=== PATIENT | male | born 1955 | race Caucasian/White ===

== ENCOUNTER → 2017-07-30 | Outpatient (CLI) | payer OTHER ==
[~2017-07-30] MED LIST: ALL300 PO; ASC500 PO; ASPI-715 PO; FAM20 PO; FAMO20TA28 PO; FAMO20TA9 PO; HYDR-6016 PO; IBU600 PO; IBU800 PO; IBUP800T37 PO; LEV500 PO; LEVO-85 PO; LOR5 PO; NAPR220T86 PO; OMEG-84 PO; PAN20 PO; PANT40TA65 PO; PHEN200T32 PO; PHENA200 PO; TAM4 PO; VITE400 PO
== END ==
LOC: LAB 10:06
DX: R97.20 Elevated prostate specific antigen [PSA] (principal)
CPT/HCPCS: 36415; 84154

== ENCOUNTER → 2017-10-23 | Outpatient (CLI) | payer OTHER | LOC: LAB 11:47 | DX: R97.20 Elevated prostate specific antigen [PSA] (principal) | CPT/HCPCS: 36415; 84154 ==

== ENCOUNTER → 2018-01-15 | Outpatient (CLI) | payer OTHER | LOC: LAB 10:59 | DX: R97.20 Elevated prostate specific antigen [PSA] (principal) | CPT/HCPCS: 36415; 84154 ==

== ENCOUNTER 2018-03-04 16:55 | Inpatient (IN) | payer OTHER ==
[~2018-03-04] VITALS: Ht 177.8 cm; Wt 95.3 kg
--- NOTE | 2018-03-04 18:02 | ER Report ---
History and Physical Time Seen By MD: 18:02 Hx. of Stated Complaint: pain in low abdo, nausea, pain with urination HPI/ROS CHIEF COMPLAINT: abdominal pain, acute renal failure HISTORY OF PRESENT ILLNESS: Shahla is a 62 year old male. He was sent to the hospital this afternoon by his primary care provider, Dr. Swartz. The patient had seen Dr. Swartz for a 2-3 week history of abdominal pain. Consistent pain, vague, marlon-umbilical and to the lower abdomen bilaterally. No vomiting, but does have nausea. Poor appetite and not eating much, but eating dairy (yogurt, cheese, milk) seems to help a little. No diarrhea, blood in stool or melena. Last BM today and normal. Urinating a little more frequently, but no pain with urination. Has history of prostate problems and has seen Dr. Hanley in the past, and takes Tamsulosin. Last week did have some right sided flank pain, and took some Naproxen, but then stopped after reading the bottle which said not to take for stomach pain. No chest pain or shortness of breath. No fevers or chills. REVIEW OF SYSTEMS: As above. Allergies: Uncoded Allergies: sulfa drugs (Allergy, Unknown, 03/04/18) Home Meds Reported Medications [tumeric curcumin] No Conflict Check, 500 MG 03/04/18 Krill/[place]-3/Dha/Epa/Lipids (Krill Oil 350 mg Softgel) 350 Mg-90 Mg-24 Mg-50 Mg-130 Mg Capsule 03/04/18 Ibuprofen (IBUPROFEN) 800 Mg Tablet, 1 TAB PO TID PRN for PAIN, #50 TAB 06/07/15 Aspirin (Aspirin) 81 Mg Tablet.dr, 81 MG PO DAILY 07/15/12 Tamsulosin Hcl (Flomax) 0.4 Mg Cap, 0.4 MG PO BID, 0 Refills 09/21/09 Allopurinol (Zyloprim) 300 Mg Tab, 300 MG PO DAILY, 0 Refills 09/21/09 Discontinued Reported Medications Pantoprazole Sodium (PANTOPRAZOLE SODIUM) 40 Mg Tablet.dr, 40 MG PO QDAY, TAB.SR 03/04/18 Levofloxacin 500 Mg Tab (LEVAQUIN 500 MG TAB) 500 Mg Tablet, 500 MG PO QDAY 06/07/15 Famotidine (PEPCID) 20 Mg Tablet, 20 MG PO BID, #20 TAB 06/07/15 Phenazopyridine Hcl (PHENAZOPYRIDINE HCL) 200 Mg Tablet, 200 MG PO TID PRN for PAIN, #20 TAB 06/07/15 Hydrocodone Bit/Acetaminophen 7.5/300 (HYDROCODON-ACETAMINOPH 7.5-300) 1 Each Tablet, 1 EACH PO Q4-6H PRN for PAIN, #30 TAB 06/07/15 Docosahexanoic Acid/Epa (Fish Oil 1,000 Mg Softgel) 1 Cap Capsule, 1 CAP PO DAILY 07/15/12 Vitamin E (Vitamin E) 400 Intlu Cap, 400 INTLU PO QDAY 07/15/12 Ascorbic Acid (Vitamin C) 500 Mg Tab, 500 MG PO DAILY 07/15/12 Past Medical/Surgical History GERD, BPH, gout, surgeries include a mastectomy, hernia repair, tonsils and adenoids, colonoscopy which was normal, prostate biopsy which was normal Reviewed Nurses Notes: Yes Old Medical Records Reviewed: Yes (reviewed labs and notes from Dr. Swartz's office) Hx Smoking: No Smoking Status: Never Smoker Hx Alcohol Use: Yes Constitutional Vital Sign - Last 24 Hours 03/04/18 03/04/18 03/04/18 03/04/18 17:17 17:25 17:30 17:57 Temp 98.0 Pulse 65 67 Resp 14 B/P (MAP) 175/102 (126) 165/101 (122) 165/101 Pulse Ox 93 91 O2 Delivery Room Air 03/04/18 03/04/18 03/04/18 03/04/18 18:00 18:25 18:30 19:00 Pulse 69 75 61 B/P (MAP) 159/97 (117) 158/85 (109) 168/95 (119) Pulse Ox 91 91 96 03/04/18 03/04/18 03/04/18 19:05 19:30 19:35 Pulse 61 73 B/P (MAP) 147/75 (99) Pulse Ox 88 92 Physical Exam General Appearance: The patient is alert. No acute distress. Non-toxic in ap pearance. Eyes: Pupils are equal, round. No pallor, injection or icterus. ENT: Mucous membranes are moist. Neck: Supple, no lymphadenopathy Respiratory: Lungs are clear to auscultation. Cardiovascular: Regular rate and rhythm. No murmurs, gallops or rubs. Normal capillary refill. Gastrointestinal: Abdomen is soft, discomfort with palpation, seems a little worse with percussion. Nondistended. No rebound or guarding. No masses or organomegaly. Normal active bowel sounds. No costovertebral angle tenderness with percussion. Neurological: Alert and oriented x3. No focal neurologic deficits Skin: Warm and dry. No rashes. Musculoskeletal: Extremities are nontender. No tenderness in palpation of the cervical, thoracic and lumbar spine. DIFFERENTIAL DIAGNOSIS: After history and physical exam, differential diagnosis was considered for diffuse nonspecific abdominal discomfort, with recent labs showing new acute renal failure, unknown cause. Medical Decision Making Data Points Result Diagram: 03/05/18 0026 Laboratory Hematology Test 03/04/18 17:15 Urine Color Yellow Urine Clarity Slightly-cloudy Urine pH 5.0 pH (4.8-9.5) Urine Specific [place] 1.008 Urine Protein Negative mg/dL (NEGATIVE) Urine Glucose (UA) Negative mg/dL (NEGATIVE) Urine Ketones Negative mg/dL (NEGATIVE) Urine Blood Negative (NEGATIVE) Urine Nitrite Negative (NEGATIVE) Urine Bilirubin Negative (NEGATIVE) Urine Urobilinogen Negative mg/dL (0.2-1.9) Urine Leukocyte Esterase Negative (NEGATIVE) Urine RBC <1 /HPF (0-2/HPF) Urine WBC 2 /HPF (0-5/HPF) Urine Squamous Epithelial Cells Few /LPF (</=FEW) Urine Bacteria Negative /HPF (NONE-FEW) Urine Mucus None /HPF (NONE-FEW) Urine Random Creatinine 63.7 mg/dl Urine Random Sodium 34 MEQ/L Chemistry Test 03/04/18 17:15 Urine Color Yellow Urine Clarity Slightly-cloudy Urine pH 5.0 pH (4.8-9.5) Urine Specific [place] 1.008 Urine Protein Negative mg/dL (NEGATIVE) Urine Glucose (UA) Negative mg/dL (NEGATIVE) Urine Ketones Negative mg/dL (NEGATIVE) Urine Blood Negative (NEGATIVE) Urine Nitrite Negative (NEGATIVE) Urine Bilirubin Negative (NEGATIVE) Urine Urobilinogen Negative mg/dL (0.2-1.9) Urine Leukocyte Esterase Negative (NEGATIVE) Urine RBC <1 /HPF (0-2/HPF) Urine WBC 2 /HPF (0-5/HPF) Urine Squamous Epithelial Cells Few /LPF (</=FEW) Urine Bacteria Negative /HPF (NONE-FEW) Urine Mucus None /HPF (NONE-FEW) Urine Random Creatinine 63.7 mg/dl Urine Random Sodium 34 MEQ/L Urinalysis Test 03/04/18 17:15 Urine Color Yellow Urine Clarity Slightly-cloudy Urine pH 5.0 pH (4.8-9.5) Urine Specific [place] 1.008 Urine Protein Negative mg/dL (NEGATIVE) Urine Glucose (UA) Negative mg/dL (NEGATIVE) Urine Ketones Negative mg/dL (NEGATIVE) Urine Blood Negative (NEGATIVE) Urine Nitrite Negative (NEGATIVE) Urine Bilirubin Negative (NEGATIVE) Urine Urobilinogen Negative mg/dL (0.2-1.9) Urine Leukocyte Esterase Negative (NEGATIVE) Urine RBC <1 /HPF (0-2/HPF) Urine WBC 2 /HPF (0-5/HPF) Urine Squamous Epithelial Cells Few /LPF (</=FEW) Urine Bacteria Negative /HPF (NONE-FEW) Urine Mucus None /HPF (NONE-FEW) Urine Random Creatinine 63.7 mg/dl Urine Random Sodium 34 MEQ/L EKG/Imaging Imaging EXAMINATION: Complete Abdominal Ultrasound Bladder ultrasound HISTORY: Abdominal pain. Acute renal failure. Post void bladder. COMPARISON: None. FINDINGS: Liver: Normal hepatic echotexture. There are several small cysts present in both lobes of the liver. The largest cyst measures 1.6 cm in the right hepatic lobe. No ultrasound evidence of any solid liver mass. Antegrade flow is visualized in the main portal vein. Gallbladder: The gallbladder is contracted and otherwise unremarkable by ultrasound. No visualized gallstones. No gallbladder wall thickening or pericholecystic fluid. Bile Ducts: No biliary ductal dilatation. The common duct measures 4 mm. Pancreas: The head and body of the pancreas are moderately well visualized and unremarkable where seen. Spleen: Normal; length 11 cm. Kidneys: There is moderate symmetric hydronephrosis of both kidneys. Normal renal echogenicity. No parenchymal atrophy. The right kidney measures 12.5 cm in length; the left kidney 12.1 cm. Aorta: Segmentally visualized proximally. Patent and normal in caliber where seen. IVC: Patent. Ascites: None. Other: Post void ultrasound imaging of the bladder was performed. The bladder is markedly distended, measuring 18 x 11 x 14 cm, with a calculated bladder volume of 1379 mL. Left ureteral jets are visualized. Right ureteral jet was not visualized. There is moderate prostatic enlargement. IMPRESSION: 1. Marked distention of the urinary bladder with poor bladder emptying. Calculated volume of 1379 mL on post void imaging. 2. There is moderate symmetric hydronephrosis of both kidneys, likely secondary to the markedly distended urinary bladder. 3. No other acute intra-abdominal findings by ultrasound. Report Dictated By: Doroteo Kwon MD at 03/04/2018 8:22 PM ED Course/Re-evaluation Clinical Indication for ER IV: Hydration, IV Access ED Course Labs at Dr. Swartz's office: Sodium 138, Potassium 4.4, Bicarb 10, Chloride 107, BUN 74, Cr 5.2, Glucose 97, Calcium 10.7. Normal LFTs. Normal CBC. Ultrasound and labs show an obstructive uropathy picture. Discussed with Dr. Hanley. Plan to insert turner catheter and drain the bladder. Will infuse IV LR, plan for 1/2 of the volume of the urine drained as IV LR. Will consult Dr. Gomez for assistance with management. Further evaluation of electrolytes and fluid as needed. Will provide D5LR at 125cc/hr tonight. Dr. Hanley will see him in the morning. Decision to Disposition Date: Mar 04, 2018 Decision to Disposition Time: 20:36 Depart Departure Latest Vital Signs Vital Signs Date Time Temp Pulse Resp B/P (MAP) Pulse Ox O2 Delivery O2 Flow Rate FiO2 03/04/18 19:35 73 92 03/04/18 19:30 147/75 (99) 03/04/18 17:57 98.0 14 Room Air Impression: Primary Impression: Urinary outflow obstruction Additional Impressions: Acute renal failure Obstructive uropathy Condition: Condition Unchanged Disposition: Admitted from ER Referrals: BROOKLYN SWARTZ MD (PCP) Problem Qualifiers Additional Impressions: Acute renal failure Acute renal failure type: unspecified Qualified Codes: N17.9 - Acute kidney failure, unspecified FIDELINA THOMAS MD Mar 04, 2018 18:02
[2018-03-04] MEDS ORDERED: PANT40TA65 PO (18:48)
[2018-03-04] MEDS ORDERED: tumeric curcumin (18:48)
[2018-03-04] MEDS ORDERED: KRIL1CAP29 (18:48)
[2018-03-04] MEDS ORDERED: LIDOCAINE 2% 200MG/10ML UROJET TP ONE (20:25)
[2018-03-04] MEDS ORDERED: LR(*) 1000 ML BAG 1,000 ML VA ONE (20:25)
--- NOTE | 2018-03-04 20:34 | RADIOLOGY IMAGING REPORT ---
FAC[place] [facility] [place] NAME: Ronaldo Moss : 1955 MR: [id number] V: [id number] EXAM DATE: ORDERING PHYSICIAN: FIDELINA THOMAS TECHNOLOGIST: Location: [facility] Patient: Ronaldo Moss : 1955 Visit/Account:[id number] Date of Sevice: 03/04/2018 EXAMINATION: Complete Abdominal Ultrasound Bladder ultrasound HISTORY: Abdominal pain. Acute renal failure. Post void bladder. COMPARISON: None. FINDINGS: Liver: Normal hepatic echotexture. There are several small cysts present in both lobes of the liver. The largest cyst measures 1.6 cm in the right hepatic lobe. No ultrasound evidence of any solid live r mass. Antegrade flow is visualized in the main portal vein. Gallbladder: The gallbladder is contracted and otherwise unremarkable by ultrasound. No visualized g allstones. No gallbladder wall thickening or pericholecystic fluid. Bile Ducts: No biliary ductal dilatation. The common duct measures 4 mm. Pancreas: The head and body of the pancreas are moderately well visualized and unremarkable where se en. Spleen: Normal; length 11 cm. Kidneys: There is moderate symmetric hydronephrosis of both kidneys. Normal renal echogenicity. No pa renchymal atrophy. The right kidney measures 12.5 cm in length; the left kidney 12.1 cm. Aorta: Segmentally visualized proximally. Patent and normal in caliber where seen. IVC: Patent. Ascites: None. Other: Post void ultrasound imaging of the bladder was performed. The bladder is markedly distended, measuring 18 x 11 x 14 cm, with a calculated bladder volume of 1379 mL. Left ureteral jets are visual ized. Right ureteral jet was not visualized. There is moderate prostatic enlargement. IMPRESSION: 1. Marked distention of the urinary bladder with poor bladder emptying. Calculated volume of 1379 mL on post void imaging. 2. There is moderate symmetric hydronephrosis of both kidneys, likely secondary to the markedly diste nded urinary bladder. 3. No other acute intra-abdominal findings by ultrasound. Report Dictated By: Doroteo Kwon MD at 03/04/2018 8:22 PM Report E-Signed By: Doroteo Kwon MD at 03/04/2018 8:31 PM WSN:[id number]
--- NOTE | 2018-03-04 20:35 | RADIOLOGY IMAGING REPORT ---
FACILITY: [facility] PATIENT NAME: Ronaldo Moss : 1955 MR: [id number] V: [id number] EXAM DATE: ORDERING PHYSICIAN: FIDELINA THOMAS TECHNOLOGIST: Location: [facility] [place] Patient: Ronaldo Moss : 1955 Visit/Account:[id number] Date of Sevice: 03/04/2018 EXAMINATION: Complete Abdominal Ultrasound Bladder ultrasound HISTORY: Abdominal pain. Acute renal failure. Post void bladder. COMPARISON: None. FINDINGS: Liver: Normal hepatic echotexture. There are several small cysts present in both lobes of the liver. The largest cyst measures 1.6 cm in the right hepatic lobe. No ultrasound evidence of any solid live r mass. Antegrade flow is visualized in the main portal vein. Gallbladder: The gallbladder is contracted and otherwise unremarkable by ultrasound. No visualized g allstones. No gallbladder wall thickening or pericholecystic fluid. Bile Ducts: No biliary ductal dilatation. The common duct measures 4 mm. Pancreas: The head and body of the pancreas are moderately well visualized and unremarkable where se en. Spleen: Normal; length 11 cm. Kidneys: There is moderate symmetric hydronephrosis of both kidneys. Normal renal echogenicity. No pa renchymal atrophy. The right kidney measures 12.5 cm in length; the left kidney 12.1 cm. Aorta: Segmentally visualized proximally. Patent and normal in caliber where seen. IVC: Patent. Ascites: None. Other: Post void ultrasound imaging of the bladder was performed. The bladder is markedly distended, measuring 18 x 11 x 14 cm, with a calculated bladder volume of 1379 mL. Left ureteral jets are visual ized. Right ureteral jet was not visualized. There is moderate prostatic enlargement. IMPRESSION: 1. Marked distention of the urinary bladder with poor bladder emptying. Calculated volume of 1379 mL on post void imaging. 2. There is moderate symmetric hydronephrosis of both kidneys, likely secondary to the markedly diste nded urinary bladder. 3. No other acute intra-abdominal findings by ultrasound. Report Dictated By: Doroteo Kwon MD at 03/04/2018 8:22 PM Report E-Signed By: Doroteo Kwon MD at 03/04/2018 8:31 PM WSN:[id number]
[2018-03-04] MEDS ORDERED: MORPHINE 4 MG/ML SDV IVP ONE (21:55)
[2018-03-04 22:09] VITALS: BP 172/102
[2018-03-04] MEDS ORDERED: LR(*) 1000 ML BAG 1,000 ML IV PRN (22:10)
[2018-03-04] MEDS ORDERED: ONDANSETRON 4 MG ODT TABDP SL PRN (22:20)
[2018-03-04] MEDS ORDERED: ONDANSETRON 4 MG/2 ML VIAL IVP PRN (22:20)
[2018-03-04] MEDS ORDERED: ACETAMINOPHEN 500 MG TAB PO PRN (22:20)
[2018-03-04 22:49] VITALS: BP 177/99
[2018-03-04] MEDS: DLR(*) 1000 ML BAG 1,000 ML IV PRN (22:52)
[2018-03-04 23:00] VITALS: BP 173/94
[2018-03-04] MEDS ORDERED: BELLADONNA ALKALOIDS/OPIUM 30 MG SUPP PR PRN (23:00)
[2018-03-04] MEDS ORDERED: hydrALAZINE HCL 20 MG/ML VIAL IVP PRN ×2 (23:00→23:45)
[2018-03-04 23:30] VITALS: BP 158/92
--- NOTE | 2018-03-04 23:52 | Hospitalist Consultation ---
History of Present Illness Requesting Physician Dr Hanley Reason for Consult ROGERIO 2/2 obstruction, HTN Chief Complaint Urinary Retention History of Present Illness Thank you for the consultation. 62M presented from PCP office with ROGERIO, PMHx significant for BPH. Found to have significant urinary retention (1800cc) on passing Cuevas. Cr was 5.5 in PCP office confirmed in [facility], US showed retention with bilateral hydronephrosis. UA no evidence of infection. Dr Hanley ordered decompression with strict I/O, IV D5LR @ 125cc/hr + 0.5x hourly output for rate. Patient is hypertensive on floor. ER report Dr Hanley ordered 125cc/hr + 0.5x hourly output with D5LR, nursing report orders for 150cc/hr +0.5x hourly output with LR. Asked for clarification after unable to reach Dr Hanley, recommend using 125cc/hr D5LR + 0.5x hourly output as fluid replacement. This should optimize retention of fluid in vascula ture and provide sufficient volume replacement based on output. History Problems: (1) BPH (benign prostatic hyperplasia) (2) Gout Status: Chronic Home Meds Reported Medications [tumeric curcumin] No Conflict Check, 500 MG 03/04/18 Krill/[place]-3/Dha/Epa/Lipids (Krill Oil 350 mg Softgel) 350 Mg-90 Mg-24 Mg-50 Mg-130 Mg Capsule 03/04/18 Ibuprofen (IBUPROFEN) 800 Mg Tablet, 1 TAB PO TID PRN for PAIN, #50 TAB 06/07/15 Aspirin (Aspirin) 81 Mg Tablet.dr, 81 MG PO DAILY 07/15/12 Tamsulosin Hcl (Flomax) 0.4 Mg Cap, 0.4 MG PO BID, 0 Refills 09/21/09 Allopurinol (Zyloprim) 300 Mg Tab, 300 MG PO DAILY, 0 Refills 09/21/09 Discontinued Reported Medications Pantoprazole Sodium (PANTOPRAZOLE SODIUM) 40 Mg Tablet.dr, 40 MG PO QDAY, TAB.SR 03/04/18 Levofloxacin 500 Mg Tab (LEVAQUIN 500 MG TAB) 500 Mg Tablet, 500 MG PO QDAY 06/07/15 Famotidine (PEPCID) 20 Mg Tablet, 20 MG PO BID, #20 TAB 06/07/15 Phenazopyridine Hcl (PHENAZOPYRIDINE HCL) 200 Mg Tablet, 200 MG PO TID PRN for PAIN, #20 TAB 06/07/15 Hydrocodone Bit/Acetaminophen 7.5/300 (HYDROCODON-ACETAMINOPH 7.5-300) 1 Each Tablet, 1 EACH PO Q4-6H PRN for PAIN, #30 TAB 06/07/15 Docosahexanoic Acid/Epa (Fish Oil 1,000 Mg Softgel) 1 Cap Capsule, 1 CAP PO DAILY 07/15/12 Vitamin E (Vitamin E) 400 Intlu Cap, 400 INTLU PO QDAY 07/15/12 Ascorbic Acid (Vitamin C) 500 Mg Tab, 500 MG PO DAILY 07/15/12 Allergies: Uncoded Allergies: sulfa drugs (Allergy, Unknown, 03/04/18) Patient History: FH: Alzheimers disease FATHER FH: melanoma BROTHER OR SISTER FH: myocardial infarction FATHER FHx: benign prostatic hypertrophy FATHER FHx: hypertension MOTHER FHx: prostate cancer Uncle Stent FATHER Hx Smoking: No Smoking Status: Never Smoker Caffeine Intake: Soda Caffeine/Cups Per Day: 1-2 Hx Alcohol Use: Yes Alcohol Used: Beer, Wine, Liquor Hx Substance Use Disorder: No Social Drug Use: Never Review of Systems All Systems Reviewed/Normal: Yes, Except as Noted Genitourinary: Other (Urinary retention) Exam Vital Signs Vital Signs Date Time Temp Pulse Resp B/P (MAP) Pulse Ox O2 Delivery O2 Flow Rate FiO2 03/04/18 23:00 59 173/94 (120) 03/04/18 22:49 91 Room Air 03/04/18 22:09 99.2 16 General Appearance: Alert, Awake, No Acute Distress, Afebrile Neuro: No Gross deficits Eyes: PERRLA ENT: Normal Neck: No Masses Cardiovascular: Normal Rhythm & Peripheral Pulses Respiratory: No Respiratory Distress Chest: No Tenderness GI: Abd Soft and Non-Tender : Normal (+ Cuevas with bloody urine) Lymph: Cervical Nodes Benign Musculoskeletal: No Weakness/Pain Extremities: Soft and Non Tender, Warm, Pulses, Perfused, Edema (mild to knee b/l) Integumentary: Skin Intact without Lesion / Mass Psych: Alert & Oriented X3, Appropriate Mood & Affect Medical Decision Making Data Points Result Diagram: 03/04/18 2130 Assessment and Plan Problems: (1) Acute renal failure Status: Acute Assessment & Plan: Likely 2/2 obstruction, 1800cc retained, Cr elevated at 5.5 on admission. US showed bilateral hydronephrosis, no evidence medical renal disease. Strict I/O, Cuevas, monitor Cr, IV fluid hydration per primary. Should rapidly improve with decompression, monitor for complications. Ur Cr and Na pen ding for completeness, will check phosphorus. Avoid contrast, gadolinium, MOE/ARB, NSAID, nephrotoxic Rx as able. K normal, monitor closely but no need for renal diet at this time. Bicarb decreased at 18mEq/L but anion gap normal at 14mEq/L. (2) HTN (hypertension) Assessment & Plan: No previous Hx, likely response to decreased filtration through glomeruli. Do not want to decrease renal perfusion to rapidly. Should improve as pressure reduced through collecting system. PRN hydralazine for BP control but will allow body to self regulate for now up to BP 180 systolic. Asymptomatic. (3) Obstructive uropathy Status: Acute Assessment & Plan: Per primary, Hx of BPH. Cuevas in place, draining well. Bloody Urine in Cuevas, will use SCD only for now no chemical anticoagulation. (4) BPH (benign prostatic hyperplasia) Assessment & Plan: On tamsulosin, follows with Dr Hanley. (5) Gout Status: Chronic Assessment & Plan: Will hold allopurinol at this time 2/2 renal injury. Restart with renal dosing as appropriate. Venous Thromboembolism Antithrombotics Is Pt On Any Antithrombotics?: No (SCD only) Prophylaxis Tx Contraindicated Pharmacological Contraindicati: Active Bleeding Exam Sepsis Risk: No Definite Risk Problem Qualifiers (1) Acute renal failure: Acute renal failure type: unspecified Qualified Codes: N17.9 - Acute kidney failure, unspecified HARDIK RESTREPO DO Mar 04, 2018 23:52
[2018-03-05] VITALS: BP 165/98
[2018-03-05] MEDS: DLR(*) 1000 ML BAG 1,000 ML IV PRN ×4 (00:33→09:10)
[2018-03-05 02:53] VITALS: BP 153/92
[2018-03-05] MEDS ORDERED: PANTOPRAZOLE SOD 40 MG TABEC PO SCH (06:00)
[2018-03-05 07:36] VITALS: BP 159/88
[2018-03-05] MEDS ORDERED: GLYCOPYRROLATE 0.2MG/ML 1 ML INJ IVP PRN (08:45)
[2018-03-05] MEDS ORDERED: GLYCOPYRROLATE 0.2MG/ML 1 ML INJ IVP ONE (09:00)
[2018-03-05] MEDS ORDERED: ASPIRIN 81 MG CHEW PO SCH (09:00)
[2018-03-05] MEDS ORDERED: TAMSULOSIN HCL 0.4 MG CAP PO SCH (09:00)
[2018-03-05] MEDS ORDERED: ALLOPURINOL 300 MG TAB PO SCH (09:00)
[2018-03-05 09:31] VITALS: Ht 177.8 cm; Wt 95.3 kg
[2018-03-05 10:40] VITALS: BP 129/75
--- NOTE | 2018-03-05 11:09 | Hospitalist Progress Note ---
Subjective Progress Notes Subjective This patient was admitted with obstructive uropathy. He had no acute issues overnight. Patient Complains of: Cardiovascular: No: Chest Pain Respiratory: No: Shortness of Breath Physical Exam Vital Signs Date Time Temp Pulse Resp B/P (MAP) Pulse Ox O2 Delivery O2 Flow Rate FiO2 03/05/18 10:40 98.3 49 12 129/75 (93) 94 Room Air 03/05/18 02:53 0.5 Intake and Output 03/05/18 06:59 Intake Total 4500 ml Output Total 9050 ml Balance -4550 ml Intake Oral 500 ml IV Total 4000 ml Output Urine Total 9050 ml Cardiovascular: Regular Rate and Rhythm Respiratory: Clear to Auscultation Result Diagram: 03/05/18 1001 Assessment and Plan Problems: (1) Acute renal failure Status: Acute Assessment & Plan: His renal function has been improving now that the obstruction is bypassed. He remains on IV fluids. (2) Obstructive uropathy Status: Acute Assessment & Plan: A Cuevas catheter remains in place. He is scheduled for a TURP procedure later this week. (3) HTN (hypertension) Assessment & Plan: He has no prior history of hypertension. Hydralazine is ordered as needed, but he has not required treatment. (4) BPH (benign prostatic hyperplasia) Assessment & Plan: He is on chronic treatment with tamsulosin. Further management per Dr. Hanley. (5) Gout Status: Chronic Assessment & Plan: He is on chronic treatment with allopurinol. Exam Sepsis Risk: No Definite Risk Problem Qualifiers (1) Acute renal failure: Acute renal failure type: unspecified Qualified Codes: N17.9 - Acute kidney failure, unspecified BROOKLYN WETZEL DO Mar 05, 2018 11:09
[2018-03-05] MEDS ORDERED: LR(*) 1000 ML BAG 1,000 ML IV PRN (12:40)
[2018-03-05 15:29] VITALS: BP 125/86
[2018-03-05] MEDS ORDERED: OXYB10TA21 PO (16:55)
[2018-03-05] MEDS ORDERED: PANT40SU3 PO (16:55)
[2018-03-05] MEDS ORDERED: HYDR-420 PO (16:56)
== END 2018-03-05 17:45 | disposition home or self-care (01) | DRG 694 ==
LOC: ER 17:26 → MED 21:01
DX: N13.8 Other obstructive and reflux uropathy (principal); N13.30 Unspecified hydronephrosis; N17.9 Acute kidney failure, unspecified; I10 Essential (primary) hypertension; N40.1 Benign prostatic hyperplasia with lower urinary tract symptoms; K21.9 Gastro-esophageal reflux disease without esophagitis; R33.8 Other retention of urine; M1A.9XX0 Chronic gout, unspecified, without tophus (tophi); Z88.2 Allergy status to sulfonamides
CPT/HCPCS: 36415; 76700; 76705; 81001; 82040; 82247; 82310; 82374; 82435; 82565; 82570; 82947; 84075; 84100; 84132; 84155; 84295; 84300; 84450; 84460; 84520; 87088; 99284; J2270; J7120

== ENCOUNTER → 2018-03-06 | Outpatient (CLI) | payer OTHER ==
[2018-03-05 09:31] VITALS: BMI 30.1
[~2018-03-06] MED LIST changes: +HYDR-420 PO; +KRIL1CAP29; +OXYB10TA21 PO; +PANT40SU3 PO; +tumeric curcumin
[2018-03-06 17:21] LABS: INR 1.02
== END ==
LOC: LAB 15:47
DX: N17.9 Acute kidney failure, unspecified (principal); R94.5 Abnormal results of liver function studies
CPT/HCPCS: 36415; 82310; 82374; 82435; 82565; 82947; 84132; 84295; 84520; 85027; 85049; 85379; 85384; 85610; 85730

== ENCOUNTER 2018-03-12 00:35 | Observation (INO) | payer OTHER ==
[~2018-03-12] VITALS: Ht 175.3 cm; Wt 88.9 kg
[2018-03-12] VITALS (10 sets, daily range): BP systolic 117–155; BP diastolic 77–117
[~2018-03-12 00:35] MED LIST changes: +LIDOCAINE/SOD BICARB 8.4% SYR ID ONE; +MIDAZOLAM 2 MG/2 ML VIAL IVP PRN; +NORMOSOL R SOLN(*) 1000 ML BAG 1,000 ML IV PRN; +cefTRIAXone(*) 2 GM VIAL 2 GM in NS(*) 0.9% 100 ML ADDVANT BAG 100 ML IVPB ONE
[2018-03-12 10:23] LABS: PLATELET COUNT, AUTOMATED 240 K/uL (150-450)
[2018-03-12] MEDS ORDERED: PROPOFOL EMUL(*) 10MG/ML 20 ML 20 ML ONE (11:20)
[2018-03-12] MEDS ORDERED: DEXAMETHASONE SOD 4 MG/ML VIAL ONE (11:20)
[2018-03-12] MEDS ORDERED: LIDOCAINE MPF 1% 5 ML VIAL ONE (11:20)
[2018-03-12] MEDS ORDERED: ONDANSETRON 4 MG/2 ML VIAL ONE (11:20)
[2018-03-12] MEDS ORDERED: METOCLOPRAMIDE 10 MG/2 ML SDV ONE (11:21)
[2018-03-12] MEDS ORDERED: NS 0.9% IVPB ONE (11:35)
[2018-03-12] MEDS ORDERED: NORMOSOL R SOLN(*) 1000 ML BAG 1,000 ML IV PRN (11:35)
[2018-03-12] MEDS ORDERED: FAMOTIDINE 20 MG TAB PO ONE (11:35)
[2018-03-12] MEDS ORDERED: LIDOCAINE/SOD BICARB 8.4% SYR ID ONE (11:35)
[2018-03-12] MEDS ORDERED: CEFTRIAXONE IVPB ONE (11:35)
[2018-03-12] MEDS ORDERED: MIDAZOLAM 2 MG/2 ML VIAL IVP PRN (11:35)
[2018-03-12] MEDS ORDERED: fentaNYL CITR 100 MCG/2 ML AMP ONE ×4 (14:11→19:06)
[2018-03-12] MEDS ORDERED: GENTAMICIN 80 MG/2 ML VIAL ONE (14:44)
[2018-03-12] MEDS ORDERED: MINERAL OIL LIGHT 10 ML VIAL ONE (15:09)
[2018-03-12] MEDS ORDERED: BELLADONNA ALKALOIDS/OPIUM 30 MG SUPP PR ONE (16:20)
--- NOTE | 2018-03-12 16:25 | RADIOLOGY IMAGING REPORT ---
FACILITY: [facility] - [place] PATIENT NAME: Ronaldo Moss : 1955 MR: [id number] V: [id number] EXAM DATE: ORDERING PHYSICIAN: CHRISTIANO LEE TECHNOLOGIST: Location: [facility] Patient: Ronaldo Moss : 1955 Visit/Account:[id number] Date of Sevice: 03/12/2018 Exam type: PROSTATE ultrasound for biopsy History: SURGERY Comparison: June 07, 2015. Findings: Prostate biopsy was performed by Dr. Lee. Sonographic assistance was provided. Please see Dr. Felix chávez's report for complete details IMPRESSION: 1. As above Report Dictated By: Suzy Lorenzo MD at 03/12/2018 4:20 PM Report E-Signed By: Suzy Lorenzo MD at 03/12/2018 4:22 PM [email or web address]
[2018-03-12] MEDS ORDERED: HYDROCORTISONE 1% CR 28.35 GM TP ONE (16:52)
[2018-03-12] MEDS ORDERED: GLYCOPYRROLATE 0.2MG/ML 1 ML INJ ONE (16:55)
[2018-03-12 18:00] LABS: PLATELET COUNT, AUTOMATED 205 K/uL (150-450)
[2018-03-12] MEDS ORDERED: ACETAMIN/CODEINE #3 300-30 MG PO PRN (18:10)
[2018-03-12] MEDS ORDERED: LR(*) 1000 ML BAG 1,000 ML IV PRN (18:10)
[2018-03-12] MEDS ORDERED: ONDANSETRON 4 MG/2 ML VIAL IVP PRN (18:10)
[2018-03-12] MEDS ORDERED: HYDROmorphone PCA 6 MG/30 ML IV PRN (18:10)
[2018-03-12] MEDS ORDERED: FLUSH 10 ML SYR IVP PRN (18:10)
[2018-03-12] MEDS ORDERED: ZOLPIDEM TARTRATE 5 MG TAB PO PRN (18:10)
[2018-03-12] MEDS ORDERED: NALOXONE HCL 0.4 MG/ML VIAL IVP PRN (18:10)
[2018-03-12] MEDS ORDERED: BELLADONNA ALKALOIDS/OPIUM 30 MG SUPP PR PRN (18:10)
[2018-03-12] MEDS ORDERED: GLYCOPYRROLATE 0.2MG/ML 1 ML INJ IVP PRN (18:10)
[2018-03-12] MEDS ORDERED: FUROSEMIDE 20 MG/2 ML VIAL IVP ONE (18:15)
[2018-03-12] MEDS ORDERED: NORMOSOL R SOLN(*) 1000 ML BAG 1,000 ML IV ONE (18:27)
[2018-03-12] MEDS ORDERED: LABETALOL HCL 100 MG/20ML VIAL ONE (18:42)
--- NOTE | 2018-03-12 18:53 | OPERATIVE REPORT 1 ---
EVENT DATE: March 12, 2018 SURGEON: Octavio Hanley MD ANESTHESIOLOGIST: Kemal Lion MD ANESTHESIA: General. PREOPERATIVE DIAGNOSES 1. Urinary retention secondary to outlet obstruction from the prostate gland. 2. Renal insufficiency secondary to #1. 3. 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 POSTOPERATIVE DIAGNOSES 1. Urinary retention secondary to outlet obstruction from the prostate gland. 2. Renal insufficiency secondary to #1. 3. 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 PROCEDURES PERFORMED 1. Cystourethroscopy. 2. Transurethral resection of the prostate. 3. Vaporization of the prostate. DESCRIPTION OF PROCEDURE Under general anesthetic, the patient was prepped and draped in the extended lithotomy position. The prostate ultrasound was performed. There were diffuse calculi throughout the prostate. The prostate measured approximately 112 g. It was deep in its AP diameter as well as its transverse diameter and longitudinal diameter. The 21 panendoscope was admitted through the urethra to the bladder. The urethra was normal. The prostate showed trilobar hyperplasia with a large obstruction prostate with the vesicle extension of the median lobe. It was almost ball valving in and out of the bladder neck area in all probability. Bladder showed a 4+ trabeculation. The bladder showed evidence of decompression cystitis from the 1800 mL he had in the bladder a little over a week ago. No other demonstrable lesions. The intravesical extension of the median lobe was resected back to the verumontanum. The tissue was resected down to the circular fibers at the bladder neck circumferentially. Bleeding was controlled with spot coagulation. Right and left lateral lobe tissues were removed. Apical tissue was resected at the conclusion of the procedure. The posterior tissue was resected with a finger in the rectum. The verumontanum was visualized and present throughout the procedure and at the conclusion of the procedure. The entire prostatic capsule was vaporized several times throughout the procedure manage the bleeding. The chips were evacuated from the bladder. The chips were so long that I had to use a grasper to remove several chips. Bladder was filled with irrigation fluid, and the scope was withdrawn. There was good efflux of irrigation fluid that cut off almost immediately upon withdrawal of the scope. There was a good, solid stream. The 22 three-way Cuevas was then placed through the urethra to the bladder. Hydrocortisone cream was placed per urethra prior to placement of the Cuevas. The bladder was drained. The irrigation was intermittently clear and then blood tinged. I elected to hold transrectal pressure for more than 10 minutes. That was accomplished. At conclusion of the procedure, there still were times of clear irrigation fluid, and then there was a show of blood, but it appeared to be less. Estimated blood loss less than 500 cc. Replacement none. Patient was stable throughout the procedure. Patient returned to recovery room in satisfactory condition. This is a 62-year-old white male complaining of urinary retention. He had a residual volume of approximately 1800 mL. He also had renal insufficiency with a creatinine of 5.3, a BUN in the 70 range, and a GFR, I believe, of 19. Patient has had an indwelling Cuevas since drainage of his bladder, and his renal function tests have improved significantly with a GFR greater than 40 at this time, and creatinine, I believe, is 1.7, upper limits of normal being 1.5. Options were discussed with the patient pretreatment. He was agreeable to evaluation and therapy. That has been accomplished. See operative note for details. Patient will hopefully be ready for discharge home in the a.m. if all is going well. Force fluids, 2 L per day. Activities are restricted to careful ambulation. He is to continue his usual medications. Patient will be discharged home on Levaquin, Pepcid, Pyridium, Colace, and [place] therapy in addition to his usual medications. MTDD
[2018-03-12] MEDS: WATER FOR IRRIG,STERILE 3000ML 3,000 ML IR PRN (20:27)
[2018-03-12] MEDS: BENZALKONIUM CL 1:750 TOP SOLN TP SCH (21:00)
[2018-03-12] MEDS: DOCUSATE SODIUM 100 MG CAP PO SCH (21:10)
[2018-03-12] MEDS: FAMOTIDINE 20 MG TAB PO SCH (21:10)
[2018-03-12] MEDS: PROPANTHELINE BROMIDE 15MG TAB PO PRN (21:10)
[2018-03-12] MEDS: NEOMYCIN/POLYMYX/BACITR OINT 1 PACKET TP SCH (21:10)
[2018-03-13] VITALS (9 sets, daily range): BP systolic 113–132; BP diastolic 66–79; Ht 175.3 cm; Wt 88.9 kg
[2018-03-13] MEDS: WATER FOR IRRIG,STERILE 3000ML 3,000 ML IR PRN ×2 (02:25→06:49)
[2018-03-13] MEDS: GENTAMICIN/NS 80 MG/100 ML PB 100 ML IVPB SCH ×2 (02:46→14:09)
[2018-03-13] MEDS: PROPANTHELINE BROMIDE 15MG TAB PO PRN ×3 (02:47→15:24)
[2018-03-13] MEDS: BENZALKONIUM CL 1:750 TOP SOLN TP SCH (09:00)
[2018-03-13] MEDS: FAMOTIDINE 20 MG TAB PO SCH (09:38)
[2018-03-13] MEDS: NEOMYCIN/POLYMYX/BACITR OINT 1 PACKET TP SCH (09:38)
[2018-03-13] MEDS: DOCUSATE SODIUM 100 MG CAP PO SCH (09:38)
[2018-03-13] MEDS ORDERED: TAMSULOSIN HCL 0.4 MG CAP PO ONE (13:45)
[2018-03-13] MEDS ORDERED: PHEN200T32 PO (13:53)
[2018-03-13] MEDS ORDERED: CIPR-214 PO (13:54)
[2018-03-13] MEDS ORDERED: cefTRIAXone(*) 1 GM VIAL 1 GM in NS(*) 0.9% 100 ML ADDVANT BAG 100 ML IVPB SCH (14:00)
[2018-03-13] MEDS ORDERED: BETH25TA43 PO (14:02)
== END 2018-03-13 13:44 | disposition home or self-care (01) ==
LOC: OR 00:35 → MED 19:30 → INTOOBSV 19:30
DX: N40.1 Benign prostatic hyperplasia with lower urinary tract symptoms (principal); N28.9 Disorder of kidney and ureter, unspecified; N20.1 Calculus of ureter
CPT/HCPCS: 36415; 52648; 76872; 85025; 88305; A4346; G0378; J0696; J1100; J1580; J1940; J2001; J2405; J2704; J2765; J3010; J3490; J7050; J7120; 82040; 82247; 82310; 82374; 82435; 82565; 82947; 84075; 84132; 84155; 84295; 84450; 84460; 84520

== ENCOUNTER → 2018-05-06 | Outpatient (CLI) | payer OTHER ==
[2018-03-13 12:02] VITALS: BMI 28.9
[~2018-05-06] MED LIST changes: +BETH25TA43 PO; +CIPR-214 PO; -LIDOCAINE/SOD BICARB 8.4% SYR ID ONE; -MIDAZOLAM 2 MG/2 ML VIAL IVP PRN; -NORMOSOL R SOLN(*) 1000 ML BAG 1,000 ML IV PRN; -cefTRIAXone(*) 2 GM VIAL 2 GM in NS(*) 0.9% 100 ML ADDVANT BAG 100 ML IVPB ONE
== END ==
LOC: LAB 10:48
DX: R97.20 Elevated prostate specific antigen [PSA] (principal)
CPT/HCPCS: 36415; 84154

== ENCOUNTER → 2018-07-22 | Outpatient (CLI) | payer OTHER ==
[2018-03-13 12:02] VITALS: BMI 28.9
== END ==
LOC: LAB 10:16
DX: R97.20 Elevated prostate specific antigen [PSA] (principal)
CPT/HCPCS: 36415; 84154

== ENCOUNTER → 2018-09-30 | Outpatient (CLI) | payer OTHER ==
[2018-03-13 12:02] VITALS: BMI 28.9
== END ==
LOC: LAB 07:44
DX: R97.20 Elevated prostate specific antigen [PSA] (principal)
CPT/HCPCS: 36415; 84154

== ENCOUNTER → 2018-10-01 | Outpatient (CLI) | payer OTHER ==
[2018-03-13 12:02] VITALS: BMI 28.9
[2018-10-01 08:11] LABS: PLATELET COUNT, AUTOMATED 188 K/uL (150-450)
== END ==
LOC: LAB 07:22
DX: R97.20 Elevated prostate specific antigen [PSA] (principal)
CPT/HCPCS: 36415; 82040; 82247; 82310; 82374; 82435; 82565; 82947; 84075; 84132; 84155; 84295; 84450; 84460; 84520; 85025

== ENCOUNTER 2018-10-14 02:29 | Day surgery (SDC) | payer OTHER ==
[2018-03-13 12:02] VITALS: Ht 177.8 cm; Wt 88.5 kg
[~2018-10-14] VITALS: Ht 177.8 cm; Wt 88.5 kg
[~2018-10-14 02:29] MED LIST changes: +CALC200T27 PO; +MULT1CAP59 PO
[2018-10-14] MEDS ORDERED: fentaNYL CITR 100 MCG/2 ML AMP ONE (10:14)
[2018-10-14] MEDS ORDERED: ONDANSETRON 4 MG/2 ML VIAL ONE (10:15)
[2018-10-14] MEDS ORDERED: PROPOFOL EMUL(*) 10MG/ML 20 ML 20 ML ONE (10:15)
[2018-10-14] MEDS ORDERED: LIDOCAINE MPF 1% 5 ML VIAL ONE (10:15)
[2018-10-14] MEDS ORDERED: DEXAMETHASONE SOD PHOS 10MG/ML ONE (10:15)
[2018-10-14 10:32] VITALS: BP 140/84
[2018-10-14] MEDS ORDERED: cefTRIAXone(*) 2 GM VIAL 2 GM in NS(*) 0.9% 100 ML MINI-BAG 100 ML IVPB ONE (11:10)
[2018-10-14] MEDS ORDERED: MIDAZOLAM 2 MG/2 ML VIAL IVP PRN (11:10)
[2018-10-14] MEDS ORDERED: NORMOSOL R SOLN(*) 1000 ML BAG 1,000 ML IV PRN (11:10)
[2018-10-14] MEDS ORDERED: GENTAMICIN(*) 80 MG/2 ML VIAL 160 MG in NS(*) 0.9% 100 ML BAG 100 ML IVPB ONE (11:10)
[2018-10-14] MEDS ORDERED: FAMOTIDINE 20 MG TAB PO ONE (11:10)
[2018-10-14] MEDS ORDERED: LIDOCAINE/SOD BICARB 8.4% SYR ID ONE (11:10)
[2018-10-14] MEDS ORDERED: HYDROCORTISONE 1% CR 28.35 GM TP ONE (12:37)
[2018-10-14] MEDS ORDERED: WATER FOR IRRIG,STERILE 3000ML IR ONE (12:45)
[2018-10-14] MEDS ORDERED: ACET-3017 PO (13:18)
[2018-10-14] MEDS ORDERED: FAMO20TA28 PO (13:18)
[2018-10-14] MEDS ORDERED: IBUP-1671 PO (13:19)
[2018-10-14] MEDS ORDERED: LEVO-85 PO (13:20)
[2018-10-14] MEDS ORDERED: ACETAMIN/CODEINE #3 300-30 MG PO ONE (13:42)
[2018-10-14 14:00] VITALS: BP 127/85
--- NOTE | 2018-10-14 14:08 | RADIOLOGY IMAGING REPORT ---
FACILITY: [facility] [place] PATIENT NAME: Ronaldo Moss : 1955 MR: [id number] V: [id number] EXAM DATE: ORDERING PHYSICIAN: CHRISTIANO LEE TECHNOLOGIST: [place] [facility] [place] Ronaldo [place] : 1955 Visit/Account:[id number] Date of Sevice: 10/14/2018 Exam type: PROSTATE BIOPSY History: Elevated PSA Comparison: March 12, 2018. Findings: The prostate biopsy was performed by Dr. Lee. Sonographic assistance was provided. Please see Dr. Lee's report for complete details IMPRESSION: 1. As above Report Dictated By: Suzy Lorenzo MD at 10/14/2018 2:03 PM Report E-Signed By: Suzy Lorenzo MD at 10/14/2018 2:04 PM WSN:[id number]
[2018-10-14 14:31] VITALS: BP 122/85
[2018-10-14 15:05] VITALS: BP 116/74
[2018-10-14 15:38] VITALS: BP 133/80
[2018-10-14 15:42] VITALS: BP 110/82
--- NOTE | 2018-10-15 03:53 | OPERATIVE REPORT 1 ---
EVENT DATE: October 14, 2018 SURGEON: Octavio Hanley MD ANESTHESIOLOGIST: Michael Alvarado MD ANESTHESIA: General. PREOPERATIVE DIAGNOSES 1. Elevated prostate-specific antigen. 2. Abnormal prostate and nodule of the right proximal lateral lobe area. POSTOPERATIVE DIAGNOSES 1. Elevated prostate-specific antigen. 2. Abnormal prostate and nodule of the right proximal lateral lobe area. PROCEDURE PERFORMED 1. Prostate ultrasound. 2. Biopsies x2 of nodular area of the right lateral lobe of the prostate with - finger guidance. 3. Transrectal biopsies x12 of the random biopsies of the bladder. 4. Cystourethroscopy and evacuation of blood clots. DESCRIPTION OF PROCEDURE Under general anesthetic, the patient was prepped and draped in the extended lithotomy position. Digital examination revealed an approximately 1 cm nodule in the proximal mid area of the right lateral lobe area. Two biopsies were obtained by finger guidance and sent in a separate container. The transrectal ultrasound probe was introduced transrectally. The prostate was scanned, and there were scattered calculi throughout. There was a hypoechoic area in the right mid to lateral area of the base and the mid prostate on the right. Prostate was measured and measured a total of approximately 97 g. Patient is status post transurethral resection of the prostate in March 2018. Biopsies were obtained from the base, mid and apical areas of the prostate bilaterally for a total of 12 transrectal biopsies. At conclusion of the ultrasound and the biopsies, the probe was removed. Digital examination revealed some bright red blood in the rectal ampulla. The patient was re-prepped and draped. The 21 panendoscope admitted through the urethra into the bladder. The urethra was normal. The prostate showed evidence of resection. There was still a significant amount of bilateral lobe tissue. There was a channel in the midline. There were some adhesions that broke free at the bladder neck area. The scope was introduced into the bladder without any difficulty. The bladder was normal, still showed 4+ trabeculation. The trigones and ureteral orifices were normal. There were three or four blood clots that were evacuated. There was still some oozing. I could not see any evidence of arterial bleeding. The Cuevas was placed and put to gravity drainage. The catheter irrigated satisfactorily, but still the irrigation was blood tinged at conclusion of the procedure. The #20 Cuevas was left indwelling and put to gravity drainage. Digital examination revealed no blood in the rectal ampulla. Patient tolerated the procedure satisfactorily and returned to the recovery room in satisfactory condition. At the conclusion of the procedure, the bladder was filled under gravity flow, and there was good efflux of irrigation fluid on withdrawal of the scope. Estimated blood loss is a few milliliters. Patient will be ready for discharge home when alert and functional, to force fluids, 2L per day. Activities are as tolerated. If he has significant bleeding in the a.m., he is still to continue bed rest and pushing of fluids until it clears up more satisfactorily. Patient will be discharged home on Levaquin, Pepcid, Pyridium, Motrin, and Tylenol No. 3 therapy in addition to his usual medication. Plan followup in the office this coming Sunday. JUDI
== END 2018-10-14 14:00 | disposition home or self-care (01) ==
LOC: OR 02:29
DX: R97.20 Elevated prostate specific antigen [PSA] (principal); N40.2 Nodular prostate without lower urinary tract symptoms
CPT/HCPCS: 52001; 52204; 55700; 76942; 88305; A4338; J1100; J1580; J2001; J2405; J2704; J3010; J7050; 88344

== ENCOUNTER → 2019-01-20 | Outpatient (CLI) | payer OTHER ==
[2018-03-13 12:02] VITALS: BMI 28.9
[~2019-01-20] MED LIST changes: +ACET-3017 PO; +IBUP-1671 PO
== END ==
LOC: LAB 10:05
DX: R97.20 Elevated prostate specific antigen [PSA] (principal)
CPT/HCPCS: 36415; 84154